=== PATIENT | female | born 1970 | race Caucasian/White ===

== ENCOUNTER 2020-11-09 07:22 | Observation (INO) | payer OTHER ==
[2020-11-09 07:37] VITALS: BMI 34.0
[2020-11-09 08:56] LABS: BASO % 0.4 % (0-2.0); EOS % 1.8 % (0-4.5); HEMATOCRIT 37.4 % (32.4-45.2); HEMOGLOBIN 12.9 GM/dL (10.7-15.3); LYMPH % 35.4 % (8-40); MCH 30.3 pg (25.7-33.7); MCHC 34.4 g/dl (32.0-36.0); MEAN CELL VOLUME 87.9 fl (80-96); MEAN PLT VOLUME 8.3 fl (7.5-11.1); MONO % 6.1 % (3.8-10.2); NEUT % 56.3 % (42.8-82.8); PLATELET COUNT 263 K/MM3 (134-434); RBC 4.25 M/mm3 (3.60-5.2); RDW 13.2 % (11.6-15.6); WHITE BLOOD COUNT 4.9 K/mm3 (4.0-10.0)
[2020-11-09 09:08] LABS: CHLORIDE 104 mmol/L (98-107); SODIUM 138 mmol/L (136-145)
[2020-11-09 09:09] LABS: CALCIUM 8.9 mg/dL (8.5-10.1)
[2020-11-09 09:10] LABS: ALBUMIN 3.6 g/dl (3.4-5.0); ANION GAP 6 MMOL/L (8-16); BLOOD UREA NITROGEN 18.2 mg/dL (7-18); CO2 27 mmol/L (21-32); GLUCOSE,RANDOM 94 mg/dL (74-106)
[2020-11-09 09:13] LABS: CREATININE 0.7 mg/dL (0.55-1.3); SGOT/AST 21 U/L (15-37); SGPT/ALT 41 U/L (13-61)
[2020-11-09 09:15] LABS: BILIRUBIN,TOTAL 1.6 mg/dL (0.2-1); TOT PROT 7.6 g/dl (6.4-8.2)
[2020-11-09 09:16] LABS: ALK PHOS 68 U/L (45-117)
[2020-11-09] MEDS ORDERED: ACETAMINOPHEN 500 MG TABLET (FP) PO ONE (09:59)
[2020-11-09] MEDS ORDERED: ACETAMINOPHEN 325 MG TABLET (FP) ONE (10:01)
[2020-11-09 11:02] LABS: N-TERMINAL BNP 72.5 pg/ml (5-125)
[2020-11-09] MEDS ORDERED: ATORVASTATIN CA 10 MG TABLET (FP) PO SCH (22:00)
[2020-11-09] MEDS ORDERED: TEMAZEPAM 15 MG CAPSULE PO SCH (22:00)
[2020-11-10] MEDS: PANTOPRAZOLE 40 MG TABLET PO SCH ×2 (00:20→10:28)
[2020-11-10] MEDS: ASPIRIN 81 MG CHEWABLE TABLETS PO SCH ×2 (00:20→10:28)
[2020-11-10] MEDS: metoPROLOL SUCCINATE 25 MG TAB.SR.24H (FP) PO SCH ×2 (10:26→10:28)
[2020-11-10 14:24] VITALS: BP 122/70; PULSE 68; TEMP 97.7
== END 2020-11-10 19:35 | disposition home or self-care (01) ==
LOC: JER 07:22 → INTOOBSV 11:37 → JERBED 11:37 → J4W 23:28
PROVIDERS: ADMIT Internal Medicine; ATTEND Internal Medicine
DX: R07.89 Other chest pain (principal); I49.1 Atrial premature depolarization; I25.10 Atherosclerotic heart disease of native coronary artery without angina pectoris; I10 Essential (primary) hypertension; E78.5 Hyperlipidemia, unspecified; E78.00 Pure hypercholesterolemia, unspecified; K21.9 Gastro-esophageal reflux disease without esophagitis; E66.9 Obesity, unspecified; Z68.34 Body mass index [BMI] 34.0-34.9, adult; Z90.49 Acquired absence of other specified parts of digestive tract
CPT/HCPCS: 36415; 71045-TC-FY; 80053; 82550; 83880; 84484; 85025; 93005; 93010; 99285-25; C9803; G0378; U0003; U0005